=== PATIENT | male | born 1950 | race Caucasian/White ===

== ENCOUNTER 2020-04-02 17:39 | Emergency (ER) | payer MEDICARE ==
[~2020-04-02] VITALS: Ht 190.5 cm; Wt 117.9 kg
[2020-04-02 17:52] VITALS: BP 163/77
== END 2020-04-02 18:42 | disposition home or self-care (01) ==
LOC: ER 17:43
DX: B35.1 Tinea unguium (principal)

== ENCOUNTER 2020-04-03 09:00 | Outpatient (CLI) | payer MEDICARE | END 2020-04-03 23:59 | disposition home or self-care (01) | LOC: WOU 09:00 | PROVIDERS: ATTEND Podiatrist Foot & Ankle Surgery | DX: L03.032 Cellulitis of left toe (principal); B35.1 Tinea unguium; B35.3 Tinea pedis | CPT/HCPCS: 87070; 87075; 87077; 87186; G0463 ==

== ENCOUNTER 2020-04-07 09:15 | Outpatient (CLI) | payer MEDICARE | END 2020-04-07 23:59 | disposition home health service (06) | LOC: WOU 09:15 | PROVIDERS: ATTEND Podiatrist Foot & Ankle Surgery | DX: L03.032 Cellulitis of left toe (principal); B35.1 Tinea unguium; B35.3 Tinea pedis ==

== ENCOUNTER 2020-04-10 09:00 | Outpatient (CLI) | payer MEDICARE | END 2020-04-10 23:59 | disposition home health service (06) | LOC: WOU 09:00 | PROVIDERS: ATTEND Podiatrist Foot & Ankle Surgery | DX: L03.032 Cellulitis of left toe (principal); L03.031 Cellulitis of right toe; B95.7 Other staphylococcus as the cause of diseases classified elsewhere; S90.424D Blister (nonthermal), right lesser toe(s), subsequent encounter; X58.XXXD Exposure to other specified factors, subsequent encounter; B35.1 Tinea unguium; B35.3 Tinea pedis ==

== ENCOUNTER 2020-04-17 08:55 | Outpatient (CLI) | payer MEDICARE | END 2020-04-17 23:59 | disposition home health service (06) | LOC: WOU 08:55 | PROVIDERS: ATTEND Podiatrist Foot & Ankle Surgery | DX: S90.425D Blister (nonthermal), left lesser toe(s), subsequent encounter (principal); S90.424D Blister (nonthermal), right lesser toe(s), subsequent encounter; X58.XXXD Exposure to other specified factors, subsequent encounter; L84 Corns and callosities; B35.1 Tinea unguium; B35.3 Tinea pedis | CPT/HCPCS: G0463 ==